=== PATIENT | female | born 1990 | race Caucasian/White ===

== ENCOUNTER 2017-12-09 05:13 | Inpatient (IN) | payer BC ==
[2017-12-09] MEDS ORDERED: Sodium Chloride 0.9% 2.5 ML Syringe FLUSH PRN (05:17)
[2017-12-09] MEDS ORDERED: Sodium Chloride 0.9% 10 ML Syringe FLUSH PRN (05:17)
[2017-12-09] MEDS ORDERED: Oxytocin/0.9 % Sodium Chloride 30 UNIT/500 ML BAG IV SCH (05:30)
[2017-12-09] MEDS ORDERED: Citric Acid/Sodium Citrate Solution 30 ML Cup PO SCH (05:30)
[2017-12-09] MEDS ORDERED: ceFAZolin 2 GM in Premix Bag 1 BAG IV ONE (05:30)
[2017-12-09] MEDS: Lactated Ringers 1,000 ML IV SCH ×2 (05:45→07:23)
[2017-12-09] MEDS ORDERED: Morphine PF 1 MG/ML Amp ONE (06:46)
[2017-12-09] MEDS ORDERED: ceFAZolin/Dextrose,Iso-Osmotic 2 GM/50 ML Duplex Bag IV ONE (06:49)
--- NOTE | 2017-12-09 07:05 | PCM.PREANE ---
Preanesthetic Assessment - Anesthesia/Transfusion/Family Hx Anesthesia History: Prior Anesthesia Without Reaction Family History of Anesthesia Reaction: No Transfusion History: Prior Transfusion Without Reaction Intubation History: Unknown - Review of Systems General: No Symptoms Pulmonary: No Symptoms Cardiovascular: No Symptoms Gastrointestinal: No Symptoms Neurological: No Symptoms Other: Reports: None - Physical Assessment Height: 1.63 m Weight: 88.904 kg ASA Class: 2 Mental Status: Alert & Oriented x3 Airway Class: Mallampati = 2 Dentition: Reports: Normal Dentition Thyro-Mental Finger Breadths: 3 Mouth Opening Finger Breadths: 3 ROM/Head Extension: Full Lungs: Clear to Auscultation, Normal Respiratory Effort Cardiovascular: Regular Rate, Regular Rhythm - Lab Values: Laboratory Last Values WBC 8.34 K/uL (4.0-11.0) 12/08/17 08:53 RBC 4.01 M/uL (4.30-5.90) L 12/08/17 08:53 Hgb 12.4 g/dL (12.0-16.0) 12/08/17 08:53 Hct 37.1 % (36.0-46.0) 12/08/17 08:53 MCV 92.5 fL (80.0-98.0) 02 08:53 MCH 30.9 pg (27.0-32.0) 12/08/17 08:53 MCHC 33.4 g/dL (31.0-37.0) 12/08/17 08:53 RDW Std Deviation 48.2 fl (28.0-62.0) 12/08/17 08:53 RDW Coeff of Vida 14 % (11.0-15.0) 12/08/17 08:53 Plt Count 147 K/uL (150-400) L 12/08/17 08:53 MPV 11.40 fL (7.40-12.00) 12/08/17 08:53 Nucleated RBC % 0.0 /100WBC 12/08/17 08:53 Nucleated RBCs # 0 K/uL 12/08/17 08:53 Blood Type O POSITIVE 12/08/17 08:53 Antibody Screen NEGATIVE 12/08/17 08:53 - Allergies Allergies/Adverse Reactions: Allergies Allergy/AdvReac Type Severity Reaction Status Date / Time No Known Allergies Allergy Verified 12/04/17 11:42 - Blood Blood Available: No - Anesthesia Plan Pre-Op Medication Ordered: None - Acknowledgements Anesthesia Type Planned: Spinal (general anesthesia back-up plan) Pt an Appropriate Candidate for the Planned Anesthesia: Yes Alternatives and Risks of Anesthesia Discussed w Pt/Guardian: Yes Pt/Guardian Understands and Agrees with Anesthesia Plan: Yes PreAnesthesia Questionnaire Gastrointestinal History: Reports: GERD Genitourinary History: Reports: None SYSTEM ADMINISTRATOR History: Reports: Psychiatric History: Reports: Anxiety Endocrine/Metabolic History: Reports: Obesity/BMI 30+ Hematologic History: Reports: Blood Transfusion(s) Other Hematologic History: transfusion after last c/section - Past Surgical History Head Surgeries/Procedures: Reports: None Female Surgical History: Reports: Section - SUBSTANCE USE Smoking Status *Q: Never Smoker Recreational Drug Use History: No - HOME MEDS Home Medications: Home Meds Cyanocobalamin (Vitamin B-12) [Cyanocobalamin Injection] 1 injection IM WEEKLY 12/04/17 [History] Escitalopram Oxalate 10 mg PO DAILY 12/04/17 [History] Ferrous Sulfate 325 mg PO DAILY 12/04/17 [History] Omeprazole Magnesium [Prilosec Otc] 20 mg PO DAILY 12/04/17 [History] PNV95/Ferrous Fumarate/FA [ Vitamins Tablet] 1 tab PO DAILY 12/04/17 [ History] - CURRENT (IN HOUSE) MEDS Current Meds: Current Medications Citric Acid/Sodium Citrate (Bicitra Solution) 30 ml PO .ONCE GHANSHYAM Lactated Ringer's (Ringers, Lactated) 1,000 mls @ 500 mls/hr IV .BOLUS GHANSHYAM Last Admin: 12/09/17 05:45 Dose: 500 mls/hr Oxytocin/Sodium Chloride (Oxytocin 30 Unit/500 Ml-Ns) 30 unit in 500 mls @ 250 mls/hr IV TITRATE GHANSHYAM Sodium Chloride (Saline Flush) 10 ml FLUSH ASDIRECTED PRN PRN Reason: Keep Vein Open Sodium Chloride (Saline Flush) 2.5 ml FLUSH ASDIRECTED PRN PRN Reason: Keep Vein Open Discontinued Medications Cefazolin Sodium/Dextrose 2 gm (/ Premix) 50 mls @ 100 mls/hr IV ONETIME ONE Stop: 12/09/17 05:59 Morphine Sulfate (Duramorph Pf) Confirm Administered Dose 1 mg .ROUTE .STK-MED ONE Stop: 12/09/17 06:47
[2017-12-09] MEDS ORDERED: Octyl 2-Cyanoacrylate 1 Tube ONE (07:33)
[2017-12-09] MEDS ORDERED: Phenylephrine/Normal Saline 100 MCG/ML 10 ML Syringe ONE (08:02)
[2017-12-09] MEDS ORDERED: Acetaminophen/oxyCODONE 325-5 MG Tab PO PRN ×3 (08:36→08:58)
[2017-12-09] MEDS ORDERED: Dexamethasone 4 MG/ML 5 ML MDV ONE (08:36)
[2017-12-09] MEDS ORDERED: Naloxone 0.4 MG/ML Syringe IVPUSH PRN (08:37)
[2017-12-09] MEDS ORDERED: Nalbuphine 10 MG/1 ML Vial IVPUSH PRN (08:37)
[2017-12-09] MEDS ORDERED: Midazolam 1 MG/ML 2 ML SDV ONE (08:41)
[2017-12-09] MEDS ORDERED: Oxytocin 10 Units/1 ML SDV ONE (08:49)
--- NOTE | 2017-12-09 08:57 | PCM.OPNOTE ---
- General Post-Op/Procedure Note Date of Surgery/Procedure: 12/09/17 Operative Procedure(s): repeat low transverse Findings: liveborn male 8/9 weight 4010 grams, normal adnexa, dense adhesions of uterus to anterior abdominal wall, ligated Pre Op Diagnosis: 39 weeks prior , desires repeat Post-Op Diagnosis: Same and dense pelvic adhesions Anesthesia Technique: Spinal Primary Surgeon: Suzie Shields Anesthesia Provider: Savanna Reynolds Fiction Writer: Alecia Beltran Pathology: none Fluid Replacement, Intraop: 2,000 Output, Urine Amount: 400 EBL in mLs: 700 Complications: None Known Condition: Good
[2017-12-09] MEDS ORDERED: Bisacodyl 10 MG Supp RECTAL PRN (08:58)
[2017-12-09] MEDS ORDERED: diphenhydrAMINE 50 MG/ML SDV IVPUSH PRN (08:58)
[2017-12-09] MEDS ORDERED: Ibuprofen 800 MG Tab PO PRN (08:58)
[2017-12-09] MEDS ORDERED: Ondansetron 4 MG/2 ML SDV IV PRN (08:58)
[2017-12-09] MEDS ORDERED: Methylergonovine 0.2 MG/1 ML Amp IM PRN (08:58)
[2017-12-09] MEDS ORDERED: Lanolin 100% Cream 7 GM Tube TOP PRN (08:58)
[2017-12-09] MEDS ORDERED: Lactated Ringers 1,000 ML IV SCH (09:00)
[2017-12-09] MEDS: Ketorolac 30 MG/ML SDV IVPUSH SCH ×3 (09:27→21:08)
--- NOTE | 2017-12-09 09:36 | PCM.POSTAN ---
POST ANESTHESIA ASSESSMENT - MENTAL STATUS Mental Status: Alert, Oriented - RESPIRATORY Respiratory Status: Respiratory Rate WNL, Airway Patent, O2 Saturation Stable - CARDIOVASCULAR CV Status: Pulse Rate WNL, Blood Pressure Stable - GASTROINTESTINAL GI Status: No Symptoms - POST OP HYDRATION Hydration Status: Adequate & Stable
[2017-12-09] MEDS: Docusate Sodium 100 MG Cap PO SCH ×2 (10:35→21:07)
--- NOTE | 2017-12-09 14:13 | OR ---
SURGEON: Suzie Shields M.D. DATE OF PROCEDURE: 12/09/2017 PREOPERATIVE DIAGNOSES: 1. 39 week intrauterine . 2. Previous delivery, desires repeat. POSTOPERATIVE DIAGNOSES: 1. 39 week intrauterine . 2. Previous delivery, desires repeat. PROCEDURE: Repeat low-transverse section with lysis of adhesions. ANESTHESIA: Spinal. ESTIMATED BLOOD LOSS: 700 mL. FLUIDS: 1500 mL of crystalloid. URINE OUTPUT: 400 mL. FINDINGS: Live-born male, scores 8 and 9. Weighing 4010 g. Normal-appearing tubes and ovaries. There were dense, up to 3 cm wide adhesions between the left side of the uterus and the anterior abdominal wall, which were cut, clamped, and ligated. COMPLICATIONS: None known. DISPOSITION: Stable to recovery. BRIEF HISTORY: This is a 27-year-old female, G2, P1-0-0-1. She presents at 39 weeks' gestation for repeat low-transverse delivery with risks discussed including bleeding, infection, injury to bowel, bladder, blood vessels, ureters, other organs, risk of thromboembolic event, and risk of anesthesia. Understanding all these risks, she does desire to proceed. DESCRIPTION OF PROCEDURE: With the patient in left tilt position, under adequate spinal analgesia, the patient was prepped with chlorhexidine and draped in usual fashion for abdominal surgery. SCDs were in place. Londono catheter has been in place and Ancef 2 g had been given IV. After documentation of adequate analgesia, the prior cicatrix was excised. Then a transverse curvilinear incision was carried through the subcutaneous tissue to the fascia, which was scored transversely in the midline. The fascial incision was extended laterally using curved Mendez scissors and the fascia was elevated from the underlying rectus muscles using sharp and blunt dissection. The rectus muscles were in the midline using hemostats and a finger was used to enter the peritoneal cavity high up towards the umbilicus. There were noted to be adhesions between the bladder and the lower uterine segment and these were lysed to allow for placement of the Tre O retractor. Further lysis of adhesions was performed over the lower uterine segment and the bladder was pushed well below the field of dissection. A transverse curvilinear incision was made with a scalpel over the lower uterine segment and a finger was used to enter the amniotic cavity. Clear fluid was noted. The incision was extended using blunt dissection. The head was delivered via the uterine incision without difficulty with subsequent delivery of the infant's shoulders and body. There was a double nuchal cord that was reduced. The infant was bulb suctioned by nose and mouth. The cord was clamped x2 and cut and the infant was handed to the nurse in attendance at delivery. The was a liveborn male, score 8 and 9, weighing 4010 g. Cord blood was collected for cord ABGs as well as routine cord blood sampling. The placenta was removed by manual extraction. The uterus was cleaned with a dry laparotomy tapes. The cervix was opened with a ring forceps. The uterine incision was closed with a running lock suture of 0 Polysorb followed by an imbricating layer of 0 Polysorb followed by 2 [id number] sutures in the midline for complete hemostasis. The uterus was not able to be moved and the left adnexa was unable to be evaluated. The right adnexa appeared normal. There were 2 areas of at least 3 cm thick adhesions between the anterior uterus and the anterior abdominal wall. These were doubly clamped, cut, and ligated using a Franki ligature of 2-0 Polysorb. With this, the uterus was mobile, the left adnexa could be inspected and appeared normal. The paracolic gutters and posterior cul-de-sac were cleaned with a wet laparotomy tape. The uterine incision was again inspected, it was completely hemostatic. The Tre O C- section retractor was removed and the rectus muscle and peritoneum were loosely approximated in the midline using a running mattress suture of 0 Polysorb. The posterior aspect of the fascia was inspected and areas of bleeding that were noted were cauterized. The fascial incision was closed with a running suture of 0 Polysorb. Subcutaneous tissue was irrigated. Any areas of bleeding that were noted were cauterized. The skin was closed with a running subcuticular suture of 2-0 Polysorb followed by skin glue. Final sponge, needle, and instrument counts were reported as correct. There were no known complications. in nursery in good condition. Mother remains in recovery in good condition. ANDREA / EL /[id number]
[2017-12-10] MEDS: Ketorolac 30 MG/ML SDV IVPUSH SCH ×2 (03:29→10:55)
--- NOTE | 2017-12-10 08:34 | PCM.PNPP ---
- General Info Functional Status: Reports: Pain Controlled, Tolerating Diet, Ambulating, Urinating - Review of Systems General: Reports: No Symptoms HEENT: Reports: No Symptoms Pulmonary: Reports: No Symptoms Cardiovascular: Reports: No Symptoms Gastrointestinal: Reports: No Symptoms Genitourinary: Reports: No Symptoms Musculoskeletal: Reports: No Symptoms Skin: Reports: No Symptoms Neurological: Reports: No Symptoms Psychiatric: Reports: No Symptoms - Patient Data Vital Signs - Most Recent: Last Vital Signs Temp 37.1 C 12/10/17 08:00 Pulse 88 12/10/17 08:00 Resp 18 12/10/17 08:00 BP 98/57 L 12/10/17 08:00 Pulse Ox 97 12/10/17 08:00 Weight - Most Recent: 88.904 kg I&O - Last 24 Hours: Intake & Output 12/09/17 12/10/17 12/10/17 22:59 06:59 14:59 Intake Total 4580 Output Total 800 Balance 3780 Lab Results - Last 24 Hours: Laboratory Results - last 24 hr 12/10/17 Range/Units 05:15 Hgb 7.7 L (12.0-16.0) g/dL Hct 22.9 L (36.0-46.0) % Med Orders - Current: Current Medications Bisacodyl (Dulcolax) 10 mg RECTAL .ONCE PRN PRN Reason: Constipation Diphenhydramine HCl (Benadryl) 25 mg IVPUSH Q6H PRN PRN Reason: Itching or Nausea Docusate Sodium (Colace) 100 mg PO BID [facility] Last Admin: 12/09/17 21:07 Dose: 100 mg Emollient Ointment (Lansinoh Hpa) 0 gm TOP ASDIRECTED PRN PRN Reason: Sore Nipples Last Admin: 12/09/17 15:06 Dose: 7 gm Lactated Ringer's (Ringers, Lactated) 1,000 mls @ 125 mls/hr IV ASDIRECTED [facility] Last Admin: 12/09/17 10:27 Dose: 125 mls/hr Ibuprofen (Motrin) 800 mg PO Q8H PRN PRN Reason: mild pain or fever Ketorolac Tromethamine (Toradol) 30 mg IVPUSH Q6H [facility] Stop: 12/10/17 09:01 Last Admin: 12/10/17 03:29 Dose: 30 mg Measles/Mumps/Rubella Vaccine Live (M-M-R Ii Vaccine) 0.5 ml SUBCUT .ONCE ONE Stop: 12/11/17 08:59 Methylergonovine Maleate (Methergine) 0.2 mg IM .ONCE PRN PRN Reason: Excessive Vaginal Bleeding Nalbuphine HCl (Nubain) 2.5 mg IVPUSH Q3H PRN PRN Reason: Pruritis Stop: 12/10/17 08:37 Naloxone HCl (Narcan) 0.1 mg IVPUSH ONETIME PRN PRN Reason: IF RR <6 WITH STIMULATION Stop: 12/10/17 08:37 Ondansetron HCl (Zofran) 4 mg IV Q4H PRN PRN Reason: Nausea/Vomiting Oxycodone/Acetaminophen (Percocet 325-5 Mg) 1 tab PO .Q4HR PRN PRN Reason: Breakthrough Pain Stop: 12/10/17 08:30 Oxycodone/Acetaminophen (Percocet 325-5 Mg) 1 tab PO Q4H PRN PRN Reason: Pain (moderate 4-6) Oxycodone/Acetaminophen (Percocet 325-5 Mg) 2 tab PO Q4H PRN PRN Reason: Pain (moderate 4-6) Discontinued Medications Citric Acid/Sodium Citrate (Bicitra Solution) 30 ml PO .ONCE GHANSHYAM Dexamethasone (Dexamethasone) Confirm Administered Dose 20 mg .ROUTE .STK-MED ONE Stop: 12/09/17 08:37 Cefazolin Sodium/Dextrose 2 gm (/ Premix) 50 mls @ 100 mls/hr IV ONETIME ONE Stop: 12/09/17 05:59 Lactated Ringer's (Ringers, Lactated) 1,000 mls @ 500 mls/hr IV .BOLUS GHANSHYAM Last Admin: 12/09/17 07:23 Dose: 999 mls/hr Oxytocin/Sodium Chloride (Oxytocin 30 Unit/500 Ml-Ns) 30 unit in 500 mls @ 250 mls/hr IV TITRATE GHANSHYAM Ibuprofen (Motrin) 800 mg PO Q8H PRN PRN Reason: mild pain or fever Midazolam HCl (Versed 1 Mg/Ml) Confirm Administered Dose 2 mg .ROUTE .STK-MED ONE Stop: 12/09/17 08:42 Morphine Sulfate (Duramorph Pf) Confirm Administered Dose 1 mg .ROUTE .STK-MED ONE Stop: 12/09/17 06:47 Octyl Cyanoacrylate (Dermabond Advance) Confirm Administered Dose 1 applic .ROUTE .STK-MED ONE Stop: 12/09/17 07:34 Oxytocin (Pitocin) Confirm Administered Dose 30 unit .ROUTE .STK-MED ONE Stop: 12/09/17 08:50 Phenylephrine HCl (Phenylephrine In Ns 100 Mcg/Ml) Confirm Administered Dose 1 mg .ROUTE .STK-MED ONE Stop: 12/09/17 08:03 Sodium Chloride (Saline Flush) 10 ml FLUSH ASDIRECTED PRN PRN Reason: Keep Vein Open Sodium Chloride (Saline Flush) 2.5 ml FLUSH ASDIRECTED PRN PRN Reason: Keep Vein Open - Infant Interaction Disposition, : [place] at Bedside Infant Interaction: Holding Infant Feeding: Breastfed Infant; Nursed Well Support Person: - Recovery Exam Fundal Tone: Firm Fundal Level: 1 Fingerbreadths Below Umbilicus Fundal Placement: Midline Lochia Amount: Small Lochia Color: Rubra/Red Perineum Description: Intact, Minimal Bruising/Swelling Episiotomy/Laceration: None Bladder Status: Voiding Urinary Elimination: Voided - Exam General: Alert, Oriented HEENT: Pupils Equal Neck: Supple Lungs: Clear to Auscultation, Normal Respiratory Effort Cardiovascular: Regular Rate, Regular Rhythm GI/Abdominal Exam: Normal Bowel Sounds, Soft, Non-Tender, No Organomegaly, No Distention, No Abnormal Bruit, No Mass, Pelvis Stable Extremities: Normal Inspection, Non-Tender, No Pedal Edema Skin: Warm, Dry, Intact Wound/Incisions: Healing Well Neurological: No New Focal Deficit Psy/Mental Status: Alert, Normal Affect, Normal Mood - Problem List & Annotations (1) delivery delivered SNOMED Code(s): 271421886 Code(s): O82 - ENCOUNTER FOR DELIVERY WITHOUT INDICATION Status: Acute Current Visit: Yes - Problem List Review Problem List Initiated/Reviewed/Updated: Yes - My Orders Last 24 Hours: My Active Orders 12/09/17 08:58 Patient Status [ADT] Routine Ambulate [RC] PER UNIT ROUTINE Communication Order [RC] PER UNIT ROUTINE Communication Order [RC] PER UNIT ROUTINE Communication Order [RC] Per Unit Routine May Shower [RC] ASDIRECTED Notify Provider Intake and Out [RC] ASDIRECTED Notify Provider Vital Signs [RC] ASDIRECTED RT Incentive Spirometry [RC] Q2HWA Acetaminophen/oxyCODONE [Percocet 325-5 MG] 1 tab PO Q4H PRN Acetaminophen/oxyCODONE [Percocet 325-5 MG] 2 tab PO Q4H PRN Bisacodyl [Dulcolax] 10 mg RECTAL .ONCE PRN Lanolin [Lansinoh HPA] See Dose Instructions TOP ASDIRECTED PRN Methylergonovine [Methergine] 0.2 mg IM .ONCE PRN Ondansetron [Zofran] 4 mg IV Q4H PRN diphenhydrAMINE [Benadryl] 25 mg IVPUSH Q6H PRN Abdominal Binder [OM.PC] Routine Assess Lochia [WOMSER] Per Unit Routine Assess Uterine Involution [WOMSER] Per Unit Routine Breast Pump [WOMSER] Per Unit Routine Peripheral IV Discontinue [OM.PC] Routine Sequential Compression Device [OM.PC] Per Unit Routine Resuscitation Status Routine 12/09/17 08:59 Antiembolic Devices [RC] PER UNIT ROUTINE 12/09/17 09:00 Docusate Sodium [Colace] 100 mg PO BID Ketorolac [Toradol] 30 mg IVPUSH Q6H Lactated Ringers [Ringers, Lactated] 1,000 ml IV ASDIRECTED 12/09/17 Dinner Regular Diet [DIET] 12/10/17 15:00 Ibuprofen [Motrin] 800 mg PO Q8H PRN 12/11/17 08:58 Measles, Mumps & Rubella [M-M-R II Vaccine] 0.5 ml SUBCUT .ONCE ONE - Assessment Assessment:: POD#1 after repeat low transverse , ambulating without dizziness, tolerating diet, voiding without difficulty - Plan Plan:: Continue postop care, encourage ambulation, anticipate discharge tomorrow.
[2017-12-10] MEDS: Docusate Sodium 100 MG Cap PO SCH ×2 (10:55→20:38)
--- NOTE | 2017-12-10 10:55 | PCM48HPAN ---
Post Anesthesia Note - EVALUATION WITHIN 48HRS OF ANESTHETIC Vital Signs in Normal Range: Yes Patient Participated in Evaluation: Yes Respiratory Function Stable: Yes Airway Patent: Yes Cardiovascular Function Stable: Yes Hydration Status Stable: Yes Pain Control Satisfactory: Yes Nausea and Vomiting Control Satisfactory: Yes Mental Status Recovered: Yes - COMMENTS/OBSERVATIONS Free Text/Narrative:: full sensation in legs bilaterally
[2017-12-10] MEDS: Ibuprofen 800 MG Tab PO PRN (17:00)
[2017-12-11] MEDS: Ibuprofen 800 MG Tab PO PRN ×3 (01:00→17:32)
--- NOTE | 2017-12-11 08:22 | PCM.PNPP ---
<Mara Pollock - Last Filed: 12/11/17 08:18> - General Info Date of Service: 12/11/17 Functional Status: Reports: Pain Controlled, Tolerating Diet, Ambulating, Urinating - Review of Systems General: Denies: Fever, Weakness, Fatigue Pulmonary: Denies: Shortness of Breath, Pleuritic Chest Pain, Cough Cardiovascular: Denies: Chest Pain, Palpitations, Dyspnea on Exertion Gastrointestinal: Denies: Abdominal Pain Genitourinary: Denies: Dysuria - General Info Date of Service: 12/11/17 - Patient Data Vital Signs - Most Recent: Last Vital Signs Temp 36.9 C 12/11/17 04:54 Pulse 98 12/11/17 04:54 Resp 18 12/11/17 04:54 BP 111/77 12/11/17 04:54 Pulse Ox 96 12/11/17 04:54 Weight - Most Recent: 88.904 kg Med Orders - Current: Current Medications Bisacodyl (Dulcolax) 10 mg RECTAL .ONCE PRN PRN Reason: Constipation Diphenhydramine HCl (Benadryl) 25 mg IVPUSH Q6H PRN PRN Reason: Itching or Nausea Docusate Sodium (Colace) 100 mg PO BID [facility] Last Admin: 12/10/17 20:38 Dose: 100 mg Emollient Ointment (Lansinoh Hpa) 0 gm TOP ASDIRECTED PRN PRN Reason: Sore Nipples Last Admin: 12/09/17 15:06 Dose: 7 gm Lactated Ringer's (Ringers, Lactated) 1,000 mls @ 125 mls/hr IV ASDIRECTED [facility] Last Admin: 12/09/17 10:27 Dose: 125 mls/hr Ibuprofen (Motrin) 800 mg PO Q8H PRN PRN Reason: mild pain or fever Last Admin: 12/11/17 01:00 Dose: 800 mg Measles/Mumps/Rubella Vaccine Live (M-M-R Ii Vaccine) 0.5 ml SUBCUT .ONCE ONE Stop: 12/11/17 08:59 Methylergonovine Maleate (Methergine) 0.2 mg IM .ONCE PRN PRN Reason: Excessive Vaginal Bleeding Ondansetron HCl (Zofran) 4 mg IV Q4H PRN PRN Reason: Nausea/Vomiting Oxycodone/Acetaminophen (Percocet 325-5 Mg) 1 tab PO Q4H PRN PRN Reason: Pain (moderate 4-6) Oxycodone/Acetaminophen (Percocet 325-5 Mg) 2 tab PO Q4H PRN PRN Reason: Pain (moderate 4-6) Discontinued Medications Citric Acid/Sodium Citrate (Bicitra Solution) 30 ml PO .ONCE [facility] Dexamethasone (Dexamethasone) Confirm Administered Dose 20 mg .ROUTE .STK-MED ONE Stop: 12/09/17 08:37 Cefazolin Sodium/Dextrose 2 gm (/ Premix) 50 mls @ 100 mls/hr IV ONETIME ONE Stop: 12/09/17 05:59 Lactated Ringer's (Ringers, Lactated) 1,000 mls @ 500 mls/hr IV .BOLUS [facility] Last Admin: 12/09/17 07:23 Dose: 999 mls/hr Oxytocin/Sodium Chloride (Oxytocin 30 Unit/500 Ml-Ns) 30 unit in 500 mls @ 250 mls/hr IV TITRATE [facility] Ibuprofen (Motrin) 800 mg PO Q8H PRN PRN Reason: mild pain or fever Ketorolac Tromethamine (Toradol) 30 mg IVPUSH Q6H [facility] Stop: 12/10/17 09:01 Last Admin: 12/10/17 10:55 Dose: 30 mg Midazolam HCl (Versed 1 Mg/Ml) Confirm Administered Dose 2 mg .ROUTE .STK-MED ONE Stop: 12/09/17 08:42 Morphine Sulfate (Duramorph Pf) Confirm Administered Dose 1 mg .ROUTE .STK-MED ONE Stop: 12/09/17 06:47 Nalbuphine HCl (Nubain) 2.5 mg IVPUSH Q3H PRN PRN Reason: Pruritis Stop: 12/10/17 08:37 Naloxone HCl (Narcan) 0.1 mg IVPUSH ONETIME PRN PRN Reason: IF RR <6 WITH STIMULATION Stop: 12/10/17 08:37 Octyl Cyanoacrylate (Dermabond Advance) Confirm Administered Dose 1 applic .ROUTE .STK-MED ONE Stop: 12/09/17 07:34 Oxycodone/Acetaminophen (Percocet 325-5 Mg) 1 tab PO .Q4HR PRN PRN Reason: Breakthrough Pain Stop: 12/10/17 08:30 Oxytocin (Pitocin) Confirm Administered Dose 30 unit .ROUTE .STK-MED ONE Stop: 12/09/17 08:50 Phenylephrine HCl (Phenylephrine In Ns 100 Mcg/Ml) Confirm Administered Dose 1 mg .ROUTE .STK-MED ONE Stop: 12/09/17 08:03 Sodium Chloride (Saline Flush) 10 ml FLUSH ASDIRECTED PRN PRN Reason: Keep Vein Open Sodium Chloride (Saline Flush) 2.5 ml FLUSH ASDIRECTED PRN PRN Reason: Keep Vein Open - Interaction Infant Disposition, : [place] at Bedside Infant Interaction: Holding Infant Feeding: Breastfed Infant; Nursed Well Support Person: - Recovery Exam Fundal Tone: Firm Fundal Level: 1 Fingerbreadths Below Umbilicus Fundal Placement: Midline Lochia Amount: Scant Lochia Color: Rubra/Red Perineum Description: Intact, Minimal Bruising/Swelling Episiotomy/Laceration: None Bladder Status: Voiding Urinary Elimination: Voided - Exam General: Alert, Oriented Lungs: Clear to Auscultation, Normal Respiratory Effort Cardiovascular: Regular Rate, Regular Rhythm GI/Abdominal Exam: Normal Bowel Sounds, Non-Tender, No Distention Extremities: Normal Inspection, Pedal Edema (trace) - Problem List & Annotations (1) delivery delivered SNOMED Code(s): 139367176 Code(s): O82 - ENCOUNTER FOR DELIVERY WITHOUT INDICATION Status: Acute Current Visit: Yes - Problem List Review Problem List Initiated/Reviewed/Updated: Yes - Assessment Assessment:: POD#2 after repeat low transverse . Minimal pain and lochia. Breast feeding well. under bili lights at this time. - Plan Plan:: Discharge instructions reviewed. If infant stays due to hyperbilirubinemia, mother would like to stay as well. Patient will continue iron supplementation. [facility] 6 [facility]. <Suzie Shields - Last Filed: 12/11/17 18:08> - Patient Data Vital Signs - Most Recent: Last Vital Signs Temp 36.8 C 12/11/17 08:00 Pulse 87 12/11/17 08:00 Resp 18 12/11/17 08:00 BP 97/55 L 12/11/17 08:00 Pulse Ox 98 12/11/17 08:00 Med Orders - Current: Current Medications Bisacodyl (Dulcolax) 10 mg RECTAL .ONCE PRN PRN Reason: Constipation Diphenhydramine HCl (Benadryl) 25 mg IVPUSH Q6H PRN PRN Reason: Itching or Nausea Docusate Sodium (Colace) 100 mg PO BID [facility] Last Admin: 12/11/17 09:02 Dose: 100 mg Emollient Ointment (Lansinoh Hpa) 0 gm TOP ASDIRECTED PRN PRN Reason: Sore Nipples Last Admin: 12/09/17 15:06 Dose: 7 gm Lactated Ringer's (Ringers, Lactated) 1,000 mls @ 125 mls/hr IV ASDIRECTED [facility] Last Admin: 12/09/17 10:27 Dose: 125 mls/hr Ibuprofen (Motrin) 800 mg PO Q8H PRN PRN Reason: mild pain or fever Last Admin: 12/11/17 17:32 Dose: 800 mg Methylergonovine Maleate (Methergine) 0.2 mg IM .ONCE PRN PRN Reason: Excessive Vaginal Bleeding Ondansetron HCl (Zofran) 4 mg IV Q4H PRN PRN Reason: Nausea/Vomiting Oxycodone/Acetaminophen (Percocet 325-5 Mg) 1 tab PO Q4H PRN PRN Reason: Pain (moderate 4-6) Oxycodone/Acetaminophen (Percocet 325-5 Mg) 2 tab PO Q4H PRN PRN Reason: Pain (moderate 4-6) Discontinued Medications Citric Acid/Sodium Citrate (Bicitra Solution) 30 ml PO .ONCE [facility] Dexamethasone (Dexamethasone) Confirm Administered Dose 20 mg .ROUTE .STK-MED ONE Stop: 12/09/17 08:37 Cefazolin Sodium/Dextrose 2 gm (/ Premix) 50 mls @ 100 mls/hr IV ONETIME ONE Stop: 12/09/17 05:59 Lactated Ringer's (Ringers, Lactated) 1,000 mls @ 500 mls/hr IV .BOLUS [facility] Last Admin: 12/09/17 07:23 Dose: 999 mls/hr Oxytocin/Sodium Chloride (Oxytocin 30 Unit/500 Ml-Ns) 30 unit in 500 mls @ 250 mls/hr IV TITRATE [facility] Ibuprofen (Motrin) 800 mg PO Q8H PRN PRN Reason: mild pain or fever Ketorolac Tromethamine (Toradol) 30 mg IVPUSH Q6H [facility] Stop: 12/10/17 09:01 Last Admin: 12/10/17 10:55 Dose: 30 mg Measles/Mumps/Rubella Vaccine Live (M-M-R Ii Vaccine) 0.5 ml SUBCUT .ONCE ONE Stop: 12/11/17 08:59 Midazolam HCl (Versed 1 Mg/Ml) Confirm Administered Dose 2 mg .ROUTE .STK-MED ONE Stop: 12/09/17 08:42 Morphine Sulfate (Duramorph Pf) Confirm Administered Dose 1 mg .ROUTE .STK-MED ONE Stop: 12/09/17 06:47 Nalbuphine HCl (Nubain) 2.5 mg IVPUSH Q3H PRN PRN Reason: Pruritis Stop: 12/10/17 08:37 Naloxone HCl (Narcan) 0.1 mg IVPUSH ONETIME PRN PRN Reason: IF RR <6 WITH STIMULATION Stop: 12/10/17 08:37 Octyl Cyanoacrylate (Dermabond Advance) Confirm Administered Dose 1 applic .ROUTE .STK-MED ONE Stop: 12/09/17 07:34 Oxycodone/Acetaminophen (Percocet 325-5 Mg) 1 tab PO .Q4HR PRN PRN Reason: Breakthrough Pain Stop: 12/10/17 08:30 Oxytocin (Pitocin) Confirm Administered Dose 30 unit .ROUTE .STK-MED ONE Stop: 12/09/17 08:50 Phenylephrine HCl (Phenylephrine In Ns 100 Mcg/Ml) Confirm Administered Dose 1 mg .ROUTE .STK-MED ONE Stop: 12/09/17 08:03 Sodium Chloride (Saline Flush) 10 ml FLUSH ASDIRECTED PRN PRN Reason: Keep Vein Open Sodium Chloride (Saline Flush) 2.5 ml FLUSH ASDIRECTED PRN PRN Reason: Keep Vein Open - Problem List & Annotations (1) delivery delivered SNOMED Code(s): 147438490 Code(s): O82 - ENCOUNTER FOR DELIVERY WITHOUT INDICATION Status: Acute Current Visit: Yes - Problem List Review Problem List Initiated/Reviewed/Updated: Yes - Plan Plan:: patient seen and examined and I agree with above.
[2017-12-11] MEDS ORDERED: Measles, Mumps & Rubella Vaccine 0.5 ML SDV SUBCUT ONE (08:58)
[2017-12-11] MEDS: Docusate Sodium 100 MG Cap PO SCH ×2 (09:02→22:55)
[2017-12-12] MEDS: Ibuprofen 800 MG Tab PO PRN (02:14)
--- NOTE | 2017-12-12 07:53 | PCM.PNPP ---
<Mara Pollock - Last Filed: 12/12/17 07:50> - General Info Date of Service: 12/12/17 Functional Status: Reports: Pain Controlled, Ambulating, Urinating - Review of Systems General: Denies: Fever, Weakness Pulmonary: Denies: Shortness of Breath, Pleuritic Chest Pain, Cough Cardiovascular: Denies: Chest Pain, Palpitations, Dyspnea on Exertion Gastrointestinal: Denies: Abdominal Pain Genitourinary: Denies: Dysuria - General Info Date of Service: 12/12/17 - Patient Data Vital Signs - Most Recent: Last Vital Signs Temp 36.7 C 12/12/17 04:14 Pulse 89 12/12/17 04:14 Resp 19 12/12/17 04:14 BP 105/57 L 12/12/17 04:14 Pulse Ox 98 12/12/17 04:14 Weight - Most Recent: 88.904 kg Med Orders - Current: Current Medications Bisacodyl (Dulcolax) 10 mg RECTAL .ONCE PRN PRN Reason: Constipation Diphenhydramine HCl (Benadryl) 25 mg IVPUSH Q6H PRN PRN Reason: Itching or Nausea Docusate Sodium (Colace) 100 mg PO BID [facility] Last Admin: 12/11/17 22:55 Dose: 100 mg Emollient Ointment (Lansinoh Hpa) 0 gm TOP ASDIRECTED PRN PRN Reason: Sore Nipples Last Admin: 12/09/17 15:06 Dose: 7 gm Lactated Ringer's (Ringers, Lactated) 1,000 mls @ 125 mls/hr IV ASDIRECTED [facility] Last Admin: 12/09/17 10:27 Dose: 125 mls/hr Ibuprofen (Motrin) 800 mg PO Q8H PRN PRN Reason: mild pain or fever Last Admin: 12/12/17 02:14 Dose: 800 mg Methylergonovine Maleate (Methergine) 0.2 mg IM .ONCE PRN PRN Reason: Excessive Vaginal Bleeding Ondansetron HCl (Zofran) 4 mg IV Q4H PRN PRN Reason: Nausea/Vomiting Oxycodone/Acetaminophen (Percocet 325-5 Mg) 1 tab PO Q4H PRN PRN Reason: Pain (moderate 4-6) Oxycodone/Acetaminophen (Percocet 325-5 Mg) 2 tab PO Q4H PRN PRN Reason: Pain (moderate 4-6) Discontinued Medications Citric Acid/Sodium Citrate (Bicitra Solution) 30 ml PO .ONCE [facility] Dexamethasone (Dexamethasone) Confirm Administered Dose 20 mg .ROUTE .STK-MED ONE Stop: 12/09/17 08:37 Cefazolin Sodium/Dextrose 2 gm (/ Premix) 50 mls @ 100 mls/hr IV ONETIME ONE Stop: 12/09/17 05:59 Lactated Ringer's (Ringers, Lactated) 1,000 mls @ 500 mls/hr IV .BOLUS [facility] Last Admin: 12/09/17 07:23 Dose: 999 mls/hr Oxytocin/Sodium Chloride (Oxytocin 30 Unit/500 Ml-Ns) 30 unit in 500 mls @ 250 mls/hr IV TITRATE [facility] Ibuprofen (Motrin) 800 mg PO Q8H PRN PRN Reason: mild pain or fever Ketorolac Tromethamine (Toradol) 30 mg IVPUSH Q6H [facility] Stop: 12/10/17 09:01 Last Admin: 12/10/17 10:55 Dose: 30 mg Measles/Mumps/Rubella Vaccine Live (M-M-R Ii Vaccine) 0.5 ml SUBCUT .ONCE ONE Stop: 12/11/17 08:59 Midazolam HCl (Versed 1 Mg/Ml) Confirm Administered Dose 2 mg .ROUTE .STK-MED ONE Stop: 12/09/17 08:42 Morphine Sulfate (Duramorph Pf) Confirm Administered Dose 1 mg .ROUTE .STK-MED ONE Stop: 12/09/17 06:47 Nalbuphine HCl (Nubain) 2.5 mg IVPUSH Q3H PRN PRN Reason: Pruritis Stop: 12/10/17 08:37 Naloxone HCl (Narcan) 0.1 mg IVPUSH ONETIME PRN PRN Reason: IF RR <6 WITH STIMULATION Stop: 12/10/17 08:37 Octyl Cyanoacrylate (Dermabond Advance) Confirm Administered Dose 1 applic .ROUTE .STK-MED ONE Stop: 12/09/17 07:34 Oxycodone/Acetaminophen (Percocet 325-5 Mg) 1 tab PO .Q4HR PRN PRN Reason: Breakthrough Pain Stop: 12/10/17 08:30 Oxytocin (Pitocin) Confirm Administered Dose 30 unit .ROUTE .STK-MED ONE Stop: 12/09/17 08:50 Phenylephrine HCl (Phenylephrine In Ns 100 Mcg/Ml) Confirm Administered Dose 1 mg .ROUTE .STK-MED ONE Stop: 12/09/17 08:03 Sodium Chloride (Saline Flush) 10 ml FLUSH ASDIRECTED PRN PRN Reason: Keep Vein Open Sodium Chloride (Saline Flush) 2.5 ml FLUSH ASDIRECTED PRN PRN Reason: Keep Vein Open - Interaction Infant Disposition, : at Bedside Infant Interaction: Holding Infant Infant Feeding: Breastfed Infant; Nursed Well Support Person: - Recovery Exam Fundal Tone: Firm Fundal Level: 1 Fingerbreadths Below Umbilicus Fundal Placement: Midline Lochia Amount: Scant Lochia Color: Rubra/Red Perineum Description: Intact, Minimal Bruising/Swelling Episiotomy/Laceration: None Bladder Status: Voiding Urinary Elimination: Voided - Exam Neck: Supple Lungs: Clear to Auscultation, Normal Respiratory Effort Cardiovascular: Regular Rate, Regular Rhythm GI/Abdominal Exam: Normal Bowel Sounds, No Distention Extremities: Normal Inspection - Problem List & Annotations (1) delivery delivered SNOMED Code(s): 730321473 Code(s): O82 - ENCOUNTER FOR DELIVERY WITHOUT INDICATION Status: Acute Current Visit: Yes - Problem List Review Problem List Initiated/Reviewed/Updated: Yes - My Orders Last 24 Hours: My Active Orders 12/11/17 08:23 Ready for Discharge [RC] PER UNIT ROUTINE - Assessment Assessment:: POD#3 after repeat low transverse . Minimal pain and lochia. Breast feeding well. Discharge home today. - Plan Plan:: Discharge instructions reviewed. Nothing in the vagina for 6 weeks. Continue PNV while breast feeding. Rx for Percocet to use as needed for pain. No lifting greater than 10 lbs. Instructed patient to call if she develops fever greater than 101 or bleeding through a large pad an hour. F/U with [facility] in 2 and 6 weeks. <Suzie Shields - Last Filed: 12/12/17 08:56> - Patient Data Vital Signs - Most Recent: Last Vital Signs Temp 36.7 C 12/12/17 04:14 Pulse 89 12/12/17 04:14 Resp 19 12/12/17 04:14 BP 105/57 L 12/12/17 04:14 Pulse Ox 98 12/12/17 04:14 Med Orders - Current: Current Medications Bisacodyl (Dulcolax) 10 mg RECTAL .ONCE PRN PRN Reason: Constipation Diphenhydramine HCl (Benadryl) 25 mg IVPUSH Q6H PRN PRN Reason: Itching or Nausea Docusate Sodium (Colace) 100 mg PO BID [facility] Last Admin: 12/11/17 22:55 Dose: 100 mg Emollient Ointment (Lansinoh Hpa) 0 gm TOP ASDIRECTED PRN PRN Reason: Sore Nipples Last Admin: 12/09/17 15:06 Dose: 7 gm Lactated Ringer's (Ringers, Lactated) 1,000 mls @ 125 mls/hr IV ASDIRECTED [facility] Last Admin: 12/09/17 10:27 Dose: 125 mls/hr Ibuprofen (Motrin) 800 mg PO Q8H PRN PRN Reason: mild pain or fever Last Admin: 12/12/17 02:14 Dose: 800 mg Methylergonovine Maleate (Methergine) 0.2 mg IM .ONCE PRN PRN Reason: Excessive Vaginal Bleeding Ondansetron HCl (Zofran) 4 mg IV Q4H PRN PRN Reason: Nausea/Vomiting Oxycodone/Acetaminophen (Percocet 325-5 Mg) 1 tab PO Q4H PRN PRN Reason: Pain (moderate 4-6) Oxycodone/Acetaminophen (Percocet 325-5 Mg) 2 tab PO Q4H PRN PRN Reason: Pain (moderate 4-6) Discontinued Medications Citric Acid/Sodium Citrate (Bicitra Solution) 30 ml PO .ONCE [facility] Dexamethasone (Dexamethasone) Confirm Administered Dose 20 mg .ROUTE .STK-MED ONE Stop: 12/09/17 08:37 Cefazolin Sodium/Dextrose 2 gm (/ Premix) 50 mls @ 100 mls/hr IV ONETIME ONE Stop: 12/09/17 05:59 Lactated Ringer's (Ringers, Lactated) 1,000 mls @ 500 mls/hr IV .BOLUS [facility] Last Admin: 12/09/17 07:23 Dose: 999 mls/hr Oxytocin/Sodium Chloride (Oxytocin 30 Unit/500 Ml-Ns) 30 unit in 500 mls @ 250 mls/hr IV TITRATE [facility] Ibuprofen (Motrin) 800 mg PO Q8H PRN PRN Reason: mild pain or fever Ketorolac Tromethamine (Toradol) 30 mg IVPUSH Q6H [facility] Stop: 12/10/17 09:01 Last Admin: 12/10/17 10:55 Dose: 30 mg Measles/Mumps/Rubella Vaccine Live (M-M-R Ii Vaccine) 0.5 ml SUBCUT .ONCE ONE Stop: 12/11/17 08:59 Midazolam HCl (Versed 1 Mg/Ml) Confirm Administered Dose 2 mg .ROUTE .STK-MED ONE Stop: 12/09/17 08:42 Morphine Sulfate (Duramorph Pf) Confirm Administered Dose 1 mg .ROUTE .STK-MED ONE Stop: 12/09/17 06:47 Nalbuphine HCl (Nubain) 2.5 mg IVPUSH Q3H PRN PRN Reason: Pruritis Stop: 12/10/17 08:37 Naloxone HCl (Narcan) 0.1 mg IVPUSH ONETIME PRN PRN Reason: IF RR <6 WITH STIMULATION Stop: 12/10/17 08:37 Octyl Cyanoacrylate (Dermabond Advance) Confirm Administered Dose 1 applic .ROUTE .STK-MED ONE Stop: 12/09/17 07:34 Oxycodone/Acetaminophen (Percocet 325-5 Mg) 1 tab PO .Q4HR PRN PRN Reason: Breakthrough Pain Stop: 12/10/17 08:30 Oxytocin (Pitocin) Confirm Administered Dose 30 unit .ROUTE .STK-MED ONE Stop: 12/09/17 08:50 Phenylephrine HCl (Phenylephrine In Ns 100 Mcg/Ml) Confirm Administered Dose 1 mg .ROUTE .STK-MED ONE Stop: 12/09/17 08:03 Sodium Chloride (Saline Flush) 10 ml FLUSH ASDIRECTED PRN PRN Reason: Keep Vein Open Sodium Chloride (Saline Flush) 2.5 ml FLUSH ASDIRECTED PRN PRN Reason: Keep Vein Open - Problem List & Annotations (1) delivery delivered SNOMED Code(s): 325248775 Code(s): O82 - ENCOUNTER FOR DELIVERY WITHOUT INDICATION Status: Acute Current Visit: Yes - Problem List Review Problem List Initiated/Reviewed/Updated: Yes - Plan Plan:: patient was seen and examined by me and I agree with above.
[2017-12-12] MEDS: Docusate Sodium 100 MG Cap PO SCH (11:02)
== END 2017-12-12 12:00 | disposition home or self-care (01) | DRG 540 ==
LOC: MW.OB 05:13
PROVIDERS: ADMIT Obstetrics & Gynecology; ATTEND Obstetrics & Gynecology
PROC: 10D00Z1 Extraction of Products of Conception, Low, Open Approach (ICD-10-PCS; principal; 2017-12-09)
DX: O34.211 Maternal care for low transverse scar from previous cesarean delivery (principal); Z3A.39 39 weeks gestation of pregnancy; Z37.0 Single live birth
CPT/HCPCS: 01961; 36415; 59025; 85014; 85018; 85027; 86850; 86900; 86901; 90707; A9270-GY; J0690; J1100; J1885; J2250; J2274; J2590; J7120

== ENCOUNTER 2019-09-17 08:00 | Inpatient (IN) | payer BC, OTHER ==
[2019-09-21] MEDS ORDERED: Sodium Chloride 0.9% 2.5 ML Syringe FLUSH PRN (05:28)
[2019-09-21] MEDS ORDERED: Sodium Chloride 0.9% 10 ML SDV IV PRN (05:28)
[2019-09-21] MEDS ORDERED: Sodium Chloride 0.9% 10 ML Syringe FLUSH PRN (05:28)
[2019-09-21] MEDS ORDERED: Citric Acid/Sodium Citrate Solution 30 ML Cup PO ONE (05:28)
[2019-09-21] MEDS ORDERED: ceFAZolin 2 GM in Premix Bag 1 BAG IV ONE (05:28)
[2019-09-21] MEDS ORDERED: Oxytocin/0.9 % Sodium Chloride 30 UNIT/500 ML BAG IV SCH (05:30)
[2019-09-21] MEDS: Lactated Ringers 1,000 ML IV SCH ×4 (05:49→07:51)
--- NOTE | 2019-09-21 06:36 | PCM.PREANE ---
Preanesthetic Assessment - Anesthesia/Transfusion/Family Hx Anesthesia History: Prior Anesthesia Without Reaction Family History of Anesthesia Reaction: No Transfusion History: Prior Transfusion Without Reaction Intubation History: Unknown - Review of Systems General: No Symptoms Pulmonary: No Symptoms Cardiovascular: No Symptoms Gastrointestinal: No Symptoms Neurological: No Symptoms Other: Reports: None - Physical Assessment Height: 5 ft 4 in Weight: 89.358 kg ASA Class: 2 Mental Status: Alert & Oriented x3 Airway Class: Mallampati = 2 Dentition: Reports: Normal Dentition Thyro-Mental Finger Breadths: 3 Mouth Opening Finger Breadths: 3 ROM/Head Extension: Full Lungs: Clear to Auscultation, Normal Respiratory Effort Cardiovascular: Regular Rate, Regular Rhythm - Lab Values: Laboratory Last Values WBC 11.10 K/uL (4.0-11.0) H 09/21/19 05:40 RBC 4.20 M/uL (4.30-5.90) L 09/21/19 05:40 Hgb 13.2 g/dL (12.0-16.0) 09/21/19 05:40 Hct 38.6 % (36.0-46.0) 09/21/19 05:40 MCV 91.9 fL (80.0-98.0) 09/21/19 05:40 MCH 31.4 pg (27.0-32.0) 09/21/19 05:40 MCHC 34.2 g/dL (31.0-37.0) 09/21/19 05:40 RDW Std Deviation 44.8 fl (28.0-62.0) 09/21/19 05:40 RDW Coeff of Vida 14 % (11.0-15.0) 09/21/19 05:40 Plt Count 238 K/uL (150-400) 09/21/19 05:40 MPV 10.30 fL (7.40-12.00) 09/21/19 05:40 Nucleated RBC % 0.0 /100WBC 09/21/19 05:40 Nucleated RBCs # 0 K/uL 09/21/19 05:40 - Allergies Allergies/Adverse Reactions: Allergies Allergy/AdvReac Type Severity Reaction Status Date / Time No Known Allergies Allergy Verified 09/15/19 14:15 - Blood Blood Available: No - Anesthesia Plan Pre-Op Medication Ordered: None - Acknowledgements Anesthesia Type Planned: Spinal (general anesthesia back-up plan) Pt an Appropriate Candidate for the Planned Anesthesia: Yes Alternatives and Risks of Anesthesia Discussed w Pt/Guardian: Yes Pt/Guardian Understands and Agrees with Anesthesia Plan: Yes PreAnesthesia Questionnaire HEENT History: Reports: None Gastrointestinal History: Reports: GERD Other Gastrointestinal History: takes Prilosec daily Genitourinary History: Reports: None [employer] History: Reports: Musculoskeletal History: Reports: Fracture Other Musculoskeletal History: hx of fx right hand and wrist Neurological History: Reports: Other (See Below) Other Neuro History: hx of motion sickness Psychiatric History: Reports: Anxiety, Depression Other Psychiatric History: does not take medications Endocrine/Metabolic History: Reports: Obesity/BMI 30+ Hematologic History: Reports: Anemia, Blood Transfusion(s) Other Hematologic History: transfusion after last c/section - Past Surgical History Head Surgeries/Procedures: Reports: None HEENT Surgical History: Reports: Oral Surgery Other HEENT Surgeries/Procedures: wisdom teeth Female Surgical History: Reports: Section Other Female Surgeries/Procedures: x2 - SUBSTANCE USE Smoking Status *Q: Never Smoker Second Hand Smoke Exposure: No Recreational Drug Use History: No - HOME MEDS Home Medications: Home Meds Omeprazole Magnesium [Prilosec Otc] 20 mg PO DAILY 12/04/17 [History] Pnv No.95/Ferrous Fum/Folic AC [ Vitamins Tablet] 1 tab PO DAILY [History] Iron 65 mg PO DAILY 09/15/19 [History] - CURRENT (IN HOUSE) MEDS Current Meds: Current Medications Lactated Ringer's (Ringers, Lactated) 1,000 mls @ 500 mls/hr IV BOLUS [facility] Last Admin: 09/21/19 05:49 Dose: 500 mls/hr Oxytocin/Sodium Chloride (Oxytocin 30 Unit/500 Ml-Ns) 30 unit in 500 mls @ 250 mls/hr IV TITRATE [facility] Sodium Chloride (Saline Flush) 10 ml FLUSH ASDIRECTED PRN PRN Reason: Keep Vein Open Sodium Chloride (Saline Flush) 2.5 ml FLUSH ASDIRECTED PRN PRN Reason: Keep Vein Open Sodium Chloride (Normal Saline) 10 ml IV ASDIRECTED PRN PRN Reason: IV Use Discontinued Medications Citric Acid/Sodium Citrate (Bicitra Solution) 30 ml PO ONETIME ONE Stop: 09/21/19 05:29 Cefazolin Sodium/Dextrose 2 gm (/ Premix) 50 mls @ 100 mls/hr IV ONETIME ONE Stop: 09/21/19 05:57
[2019-09-21] MEDS ORDERED: Morphine PF 10 MG/10 ML SDV ONE (07:25)
[2019-09-21] MEDS ORDERED: Ondansetron 4 MG/2 ML SDV ONE (07:31)
[2019-09-21] MEDS ORDERED: ceFAZolin 1 GM Vial ONE (07:35)
[2019-09-21] MEDS ORDERED: Water For Injection, Sterile 20 ML ONE (07:35)
[2019-09-21] MEDS ORDERED: Citric Acid/Sodium Citrate Solution 30 ML Cup ONE (07:49)
[2019-09-21] MEDS ORDERED: Octyl 2-Cyanoacrylate 1 Tube ONE ×2 (07:56→09:04)
[2019-09-21] MEDS ORDERED: Phenylephrine/Normal Saline 100 MCG/ML 10 ML Syringe ONE (08:18)
[2019-09-21] MEDS ORDERED: Oxytocin 10 Units/1 ML SDV ONE (08:28)
[2019-09-21] MEDS ORDERED: Midazolam 1 MG/ML 2 ML SDV ONE (08:31)
[2019-09-21] MEDS ORDERED: Lanolin 100% Cream 7 GM Tube TOP PRN (08:50)
[2019-09-21] MEDS ORDERED: Acetaminophen/oxyCODONE 325-5 MG Tab PO PRN (08:50)
[2019-09-21] MEDS ORDERED: diphenhydrAMINE 50 MG/ML SDV IVPUSH PRN ×2 (08:50→09:17)
[2019-09-21] MEDS ORDERED: Ondansetron 4 MG/2 ML SDV IVPUSH PRN (08:50)
[2019-09-21] MEDS ORDERED: Bisacodyl 10 MG Supp RECTAL PRN (08:50)
--- NOTE | 2019-09-21 08:50 | PCM.OPNOTE ---
- General Post-Op/Procedure Note Date of Surgery/Procedure: 09/21/19 Operative Procedure(s): repeat low transverse Findings: normal pelvis with filmy adhesions Pre Op Diagnosis: 39 weeks , prior , desires repeat. Post-Op Diagnosis: Same Anesthesia Technique: Spinal Primary Surgeon: Suzie Shields Anesthesia Provider: Corby Albarran Vp & General Counsel: Alize Mendez Pathology: none Fluid Replacement, Intraop: 1,300 EBL in mLs: 500 Complications: None Known Condition: Good
[2019-09-21] MEDS ORDERED: Lactated Ringers 1,000 ML IV SCH (09:00)
[2019-09-21] MEDS ORDERED: Nalbuphine 10 MG/1 ML Vial IVPUSH PRN (09:17)
[2019-09-21] MEDS ORDERED: Naloxone 0.4 MG/ML Syringe IVPUSH PRN (09:17)
[2019-09-21] MEDS: Ketorolac 30 MG/ML SDV IVPUSH SCH ×3 (09:28→21:00)
--- NOTE | 2019-09-21 10:01 | PCM48HPAN ---
Post Anesthesia Note - EVALUATION WITHIN 48HRS OF ANESTHETIC Vital Signs in Normal Range: Yes Patient Participated in Evaluation: Yes Respiratory Function Stable: Yes Airway Patent: Yes Cardiovascular Function Stable: Yes Hydration Status Stable: Yes Pain Control Satisfactory: Yes Nausea and Vomiting Control Satisfactory: Yes Mental Status Recovered: Yes Vital Signs: Last Vital Signs Temp 36.1 C 09/21/19 09:15 Pulse 74 09/21/19 09:45 Resp 13 09/21/19 09:45 BP 105/58 L 09/21/19 09:45 Pulse Ox 99 09/21/19 09:45
--- NOTE | 2019-09-21 10:04 | PCM.POSTAN ---
POST ANESTHESIA ASSESSMENT - MENTAL STATUS Mental Status: Alert, Oriented - VITAL SIGNS Vital Signs: Last Vital Signs Temp 36.1 C 09/21/19 09:15 Pulse 74 09/21/19 09:45 Resp 13 09/21/19 09:45 BP 105/58 L 09/21/19 09:45 Pulse Ox 99 09/21/19 09:45 - RESPIRATORY Respiratory Status: Respiratory Rate WNL, Airway Patent, O2 Saturation Stable - CARDIOVASCULAR CV Status: Pulse Rate WNL, Blood Pressure Stable - GASTROINTESTINAL GI Status: No Symptoms - PAIN Pain Score: 0 - POST OP HYDRATION Hydration Status: Adequate & Stable - OBSERVATIONS Free Text/Narrative:: no anesthesia problems
--- NOTE | 2019-09-21 10:45 | OR ---
SURGEON: Suzie Shields M.D. DATE OF PROCEDURE: 09/21/2019 PREOPERATIVE DIAGNOSIS: A 39-week intrauterine , prior delivery. POSTOPERATIVE DIAGNOSIS: A 39-week intrauterine , prior delivery. PROCEDURE: Repeat low-transverse section. PRIMARY SURGEON: Suzie Shields MD. RECORDING ARTIST: first Isaías assist student. ANESTHESIA: Corby Albarran with spinal analgesia. ESTIMATED BLOOD LOSS: 500 mL. FLUIDS: 1300 mL of crystalloid. FINDINGS: Liveborn female, scores 8 and 9, weighing 4080 g. Normal-appearing uterus, tubes, and ovaries with some filmy adhesions that were lysed. COMPLICATIONS: None known. DISPOSITION: Stable to recovery. BRIEF HISTORY: This is a 29-year-old female. She presents having had 2 prior deliveries, for a repeat section at 39 weeks' gestation. This has been uncomplicated. She does suffer from anxiety, but has been doing very well during the . Risks of surgery were discussed including bleeding; infection; injury to bowel, bladder, blood vessels, or other organs; risk of thromboembolic event; and risk of anesthesia. Understanding all these risks, she does desire to proceed. DESCRIPTION OF PROCEDURE: With the patient in left tilt position, under adequate spinal analgesia, the abdomen was prepped with chlorhexidine and draped in the usual fashion for abdominal surgery. SCDs were in place. Londono catheter had been placed and an appropriate time-out was held. She had received 2 g of Ancef IV, and after documentation of adequate analgesia, the prior cicatrix was excised. The incision was carried through the subcutaneous tissue to the fascia, which was scored transversely in the midline. The fascial incision was extended laterally using curved Andrea scissors. The fascia was elevated from the underlying rectus muscle using sharp and blunt dissection. The rectus muscles were in the midline using sharp dissection. A finger was placed into the peritoneal cavity. There were no significant adhesions anteriorly, therefore, the incision was extended using sharp and blunt dissection. There was some filmy adhesions over the lower uterine segment that were incised and the Tre O retractor was placed. The incision was made over the lower uterine segment with a scalpel and initially the anterior low-lying placenta was noted, however, the amniotic membranes were visible through the incision. They were ruptured. The head was delivered via the uterine incision with subsequent delivery of the 's shoulders and body. The infant was bulb suctioned by nose and mouth. After the cord had ceased to pulsate, it was doubly clamped and cut, and the infant was handed to the nurse in attendance at delivery. The was a liveborn female, score of 8 and 9, weighing 4080 g. Cord blood was collected for cord ABGs as well as routine cord blood sampling. The placenta was removed by manual extraction. The uterus was cleaned with a dry laparotomy tape. The cervix was opened with ring forceps. The uterine incision was closed with a running lock suture of 0 Polysorb followed by an imbricating layer of 0 Polysorb. At this point, the incision was then inspected and was completely hemostatic. The tubes and ovaries were inspected. There were some adhesions of the omentum to the anterior wall, which were lysed, and final inspection of the incision was performed. It was hemostatic, therefore, the Tre retractor was removed. The rectus muscle and peritoneum were loosely approximated in the midline using a running mattress suture of 0 Polysorb. The posterior aspect of the fascia was inspected and was hemostatic. The fascial incision was closed with a running suture of 0 Polysorb. Subcutaneous tissue was irrigated, any areas of bleeding that were noted were cauterized. The skin was closed with a running subcuticular suture of 3-0 Monocryl followed by Dermabond. Final sponge, needle, and instrument counts were reported as correct. There were no known complications. Mother and baby are in recovery in good condition. ANDREA GALLEGOS /[id number]
[2019-09-21] MEDS: Docusate Sodium 100 MG Cap PO SCH ×2 (10:58→20:53)
[2019-09-21] MEDS ORDERED: Ketorolac 30 MG/ML SDV ONE (11:08)
[2019-09-22] MEDS: Ketorolac 30 MG/ML SDV IVPUSH SCH ×2 (04:43→10:43)
--- NOTE | 2019-09-22 07:07 | PCM48HPAN ---
Post Anesthesia Note - EVALUATION WITHIN 48HRS OF ANESTHETIC Vital Signs in Normal Range: Yes Patient Participated in Evaluation: Yes Respiratory Function Stable: Yes Airway Patent: Yes Cardiovascular Function Stable: Yes Hydration Status Stable: Yes Pain Control Satisfactory: Yes Nausea and Vomiting Control Satisfactory: Yes Mental Status Recovered: Yes Vital Signs: Last Vital Signs Temp 36.7 C 09/22/19 05:00 Pulse 78 09/22/19 05:00 Resp 15 09/22/19 06:00 BP 114/62 09/22/19 05:00 Pulse Ox 95 09/22/19 06:00
--- NOTE | 2019-09-22 07:48 | PCM.PNPP ---
- General Info Date of Service: 09/22/19 Admission Dx/Problem (Free Text): post op Functional Status: Reports: Pain Controlled, Tolerating Diet, Ambulating, Urinating - Review of Systems General: Reports: No Symptoms HEENT: Reports: No Symptoms Pulmonary: Reports: No Symptoms Cardiovascular: Reports: No Symptoms Gastrointestinal: Reports: No Symptoms Genitourinary: Reports: No Symptoms Musculoskeletal: Reports: No Symptoms Skin: Reports: No Symptoms Neurological: Reports: No Symptoms Psychiatric: Reports: No Symptoms - General Info Date of Service: 09/22/19 - Patient Data Vital Signs - Most Recent: Last Vital Signs Temp 36.7 C 09/22/19 05:00 Pulse 78 09/22/19 05:00 Resp 15 09/22/19 06:00 BP 114/62 09/22/19 05:00 Pulse Ox 95 09/22/19 06:00 Weight - Most Recent: 89.358 kg I&O - Last 24 Hours: Intake & Output 09/21/19 09/22/19 09/22/19 22:59 06:59 14:59 Output Total 300 1450 Balance -300 -1450 Lab Results - Last 24 Hours: Laboratory Results - last 24 hr 09/21/19 09/22/19 Range/Units 08:28 05:55 Hgb 11.0 L (12.0-16.0) g/dL Hct 33.5 L (36.0-46.0) % Cord ABG pH 7.256 (7.18-7.38) Cord ABG Base Excess -3 (-10--2) Cord VBG pH 7.357 (7.25-7.45) Cord VBG Base Excess -4 (-10--2) Med Orders - Current: Current Medications Bisacodyl (Dulcolax) 10 mg RECTAL ONETIME PRN PRN Reason: Constipation Diphenhydramine HCl (Benadryl) 25 mg IVPUSH Q6H PRN PRN Reason: Itching or Nausea Diphenhydramine HCl (Benadryl) 25 mg IVPUSH Q4H PRN PRN Reason: Itching Stop: 09/22/19 09:17 Docusate Sodium (Colace) 100 mg PO BID [facility] Last Admin: 09/21/19 20:53 Dose: 100 mg Emollient Ointment (Lansinoh Hpa) 0 gm TOP ASDIRECTED PRN PRN Reason: Sore Nipples Lactated Ringer's (Ringers, Lactated) 1,000 mls @ 125 mls/hr IV ASDIRECTED [facility] Last Admin: 09/21/19 10:50 Dose: 125 mls/hr Ibuprofen (Motrin) 800 mg PO Q8H PRN PRN Reason: mild pain or fever Ketorolac Tromethamine (Toradol) 30 mg IVPUSH Q6H [facility] Stop: 09/22/19 09:01 Last Admin: 09/22/19 04:43 Dose: 30 mg Nalbuphine HCl (Nubain) 5 mg IVPUSH Q3H PRN PRN Reason: Pruritis Stop: 09/22/19 09:17 Last Admin: 09/21/19 10:49 Dose: 5 mg Naloxone HCl (Narcan) 0.1 mg IVPUSH ONETIME PRN PRN Reason: Respiratory Depression Stop: 09/22/19 09:17 Ondansetron HCl (Zofran) 4 mg IVPUSH Q4H PRN PRN Reason: Nausea/Vomiting Oxycodone/Acetaminophen (Percocet 325-5 Mg) 1 tab PO Q4H PRN PRN Reason: Pain (moderate 4-6) Oxycodone/Acetaminophen (Percocet 325-5 Mg) 2 tab PO Q4H PRN PRN Reason: Pain (moderate 4-6) Discontinued Medications Cefazolin Sodium (Ancef) Confirm Administered Dose 2 gm .ROUTE .STK-MED ONE Stop: 09/21/19 07:36 Citric Acid/Sodium Citrate (Bicitra Solution) 30 ml PO ONETIME ONE Stop: 09/21/19 05:29 Last Admin: 09/21/19 07:51 Dose: 30 ml Citric Acid/Sodium Citrate (Bicitra Solution) Confirm Administered Dose 30 ml .ROUTE .STK-MED ONE Stop: 09/21/19 07:50 Cefazolin Sodium/Dextrose 2 gm (/ Premix) 50 mls @ 100 mls/hr IV ONETIME ONE Stop: 09/21/19 05:57 Lactated Ringer's (Ringers, Lactated) 1,000 mls @ 500 mls/hr IV [facility] Last Admin: 09/21/19 07:51 Dose: 500 mls/hr Oxytocin/Sodium Chloride (Oxytocin 30 Unit/500 Ml-Ns) 30 unit in 500 mls @ 250 mls/hr IV TITRATE [facility]AN[facility] Sterile Water (Sterile Water For Injection) Confirm Administered Dose 20 mls @ as directed .ROUTE .STK-MED ONE Stop: 09/21/19 07:36 Ketorolac Tromethamine (Toradol) Confirm Administered Dose 30 mg .ROUTE .STK- MED ONE Stop: 09/21/19 11:09 Midazolam HCl (Versed 1 Mg/Ml) Confirm Administered Dose 2 mg .ROUTE .STK-MED ONE Stop: 09/21/19 08:32 Morphine Sulfate (Duramorph Pf) Confirm Administered Dose 10 mg .ROUTE .STK-MED ONE Stop: 09/21/19 07:26 Octyl Cyanoacrylate (Dermabond Advance) Confirm Administered Dose 1 applic .ROUTE .STK-MED ONE Stop: 09/21/19 07:57 Octyl Cyanoacrylate (Dermabond Advance) Confirm Administered Dose 1 applic .ROUTE .ST-MED ONE Stop: 09/21/19 09:05 Ondansetron HCl (Zofran) Confirm Administered Dose 4 mg .ROUTE .STK-MED ONE Stop: 09/21/19 07:32 Oxytocin (Pitocin) Confirm Administered Dose 30 unit .ROUTE .STK-MED ONE Stop: 09/21/19 08:29 Phenylephrine HCl (Phenylephrine In Ns 100 Mcg/Ml) Confirm Administered Dose 1 mg .ROUTE .STK-MED ONE Stop: 09/21/19 08:19 Sodium Chloride (Saline Flush) 10 ml FLUSH ASDIRECTED PRN PRN Reason: Keep Vein Open Sodium Chloride (Saline Flush) 2.5 ml FLUSH ASDIRECTED PRN PRN Reason: Keep Vein Open Sodium Chloride (Normal Saline) 10 ml IV ASDIRECTED PRN PRN Reason: IV Use - Interaction Disposition, : in Room with Family Interaction: Holding Infant Feeding: Attempted ; Nursed Fair/Poor (baby fussy while nursing) Support Person: - Recovery Exam Fundal Tone: Firm Fundal Level: At Umbilicus Fundal Placement: Midline Lochia Amount: Scant Lochia Color: Rubra/Red Perineum Description: Intact, Minimal Bruising/Swelling Episiotomy/Laceration: None Bladder Status: Indwelling Catheter in Place Urinary Elimination: Indwelling Catheter - Exam General: Alert, Oriented Neck: Supple Lungs: Clear to Auscultation, Normal Respiratory Effort Cardiovascular: Regular Rate, Regular Rhythm GI/Abdominal Exam: Normal Bowel Sounds, Soft, Non-Tender, No Mass Extremities: Normal Range of Motion, Non-Tender. No: Normal Inspection (IV infiltrated in right forearm, patient denies pain or discomfort, no warmth or erythema), Pedal Edema Skin: Warm, Dry, Intact Wound/Incisions: Dressing Dry and Intact Neurological: No New Focal Deficit Psy/Mental Status: Alert, Normal Affect, Normal Mood - Problem List Review Problem List Initiated/Reviewed/Updated: Yes - My Orders Last 24 Hours: My Active Orders 09/21/19 08:50 Acetaminophen/oxyCODONE [Percocet 325-5 MG] 1 tab PO Q4H PRN Acetaminophen/oxyCODONE [Percocet 325-5 MG] 2 tab PO Q4H PRN Bisacodyl [Dulcolax] 10 mg RECTAL ONETIME PRN Ibuprofen [Motrin] 800 mg PO Q8H PRN Lanolin [Lansinoh HPA] See Dose Instructions TOP ASDIRECTED PRN Ondansetron [Zofran] 4 mg IVPUSH Q4H PRN diphenhydrAMINE [Benadryl] 25 mg IVPUSH Q6H PRN Abdominal Binder [OM.PC] Urgent Resuscitation Status Routine 09/21/19 08:51 Patient Status [ADT] Routine Ambulate [RC] PER UNIT ROUTINE Antiembolic Devices [RC] PER UNIT ROUTINE Communication Order [RC] PER UNIT ROUTINE Communication Order [RC] PER UNIT ROUTINE Communication Order [RC] Per Unit Routine May Shower [RC] ASDIRECTED Notify Provider Vital Signs [RC] ASDIRECTED RT Incentive Spirometry [RC] Q2HWA Vital Signs [RC] PER UNIT ROUTINE Assess Lochia [WOMSER] Per Unit Routine Assess Uterine Involution [WOMSER] Per Unit Routine Breast Pump [WOMSER] Per Unit Routine Peripheral IV Discontinue [OM.PC] Routine Sequential Compression Device [OM.PC] Per Unit Routine 09/21/19 08:52 Notify Provider Intake and Out [RC] ASDIRECTED 09/21/19 09:00 Docusate Sodium [Colace] 100 mg PO BID Ketorolac [Toradol] 30 mg IVPUSH Q6H Lactated Ringers [Ringers, Lactated] 1,000 ml IV ASDIRECTED 09/21/19 Lunch Regular Diet [DIET] - Assessment Assessment:: POD#1 after repeat , vitals stable, labs are appropriate, working on . Pain well controlled. - Plan Plan:: Encourage ambulation, remove dressing, may shower today, anticipate home tomorrow. Continue /postop care at this time. Restart Lanzoprazole and lexapro.
[2019-09-22] MEDS: Escitalopram 10 MG Tab PO SCH (10:43)
[2019-09-22] MEDS: Omeprazole 20 MG Cap.CR PO SCH (10:43)
[2019-09-22] MEDS: Docusate Sodium 100 MG Cap PO SCH ×2 (10:44→20:36)
[2019-09-22] MEDS: Ibuprofen 800 MG Tab PO PRN (17:58)
[2019-09-23] MEDS: Acetaminophen/oxyCODONE 325-5 MG Tab PO PRN ×2 (00:39→11:03)
[2019-09-23] MEDS: Ibuprofen 800 MG Tab PO PRN (04:59)
--- NOTE | 2019-09-23 08:20 | PCM.PNPP ---
- General Info Date of Service: 09/23/19 Subjective Update: No complaints, ambulating, well. Functional Status: Reports: Pain Controlled, Tolerating Diet, Ambulating - Review of Systems General: Reports: No Symptoms HEENT: Reports: No Symptoms Pulmonary: Reports: No Symptoms Cardiovascular: Reports: No Symptoms Gastrointestinal: Reports: No Symptoms Genitourinary: Reports: No Symptoms Musculoskeletal: Reports: No Symptoms Skin: Reports: No Symptoms Neurological: Reports: No Symptoms Psychiatric: Reports: No Symptoms - Patient Data Vital Signs - Most Recent: Last Vital Signs Temp 36.9 C 09/23/19 05:00 Pulse 65 09/23/19 05:00 Resp 16 09/23/19 05:00 BP 107/68 09/23/19 05:00 Pulse Ox 98 09/23/19 05:00 Weight - Most Recent: 89.358 kg Lab Results - Last 24 Hours: Laboratory Results - last 24 hr 09/21/19 Range/Units 05:40 RPR 1:1 H (NonRea<1:1) Med Orders - Current: Current Medications Bisacodyl (Dulcolax) 10 mg RECTAL ONETIME PRN PRN Reason: Constipation Diphenhydramine HCl (Benadryl) 25 mg IVPUSH Q6H PRN PRN Reason: Itching or Nausea Docusate Sodium (Colace) 100 mg PO BID [facility] [place] Last Admin: 09/22/19 20:36 Dose: 100 mg Emollient Ointment (Lansinoh Hpa) 0 gm TOP ASDIRECTED PRN PRN Reason: Sore Nipples Escitalopram Oxalate (Lexapro) 10 mg PO DAILY [facility] [place] Last Admin: 09/22/19 10:43 Dose: 10 mg Lactated Ringer's (Ringers, Lactated) 1,000 mls @ 125 mls/hr IV ASDIRECTED [facility] [place] Last Admin: 09/21/19 10:50 Dose: 125 mls/hr Ibuprofen (Motrin) 800 mg PO Q8H PRN PRN Reason: mild pain or fever Last Admin: 09/23/19 04:59 Dose: 800 mg Omeprazole (Omeprazole) 20 mg PO DAILY [facility] [place] Last Admin: 09/22/19 10:43 Dose: 20 mg Ondansetron HCl (Zofran) 4 mg IVPUSH Q4H PRN PRN Reason: Nausea/Vomiting Oxycodone/Acetaminophen (Percocet 325-5 Mg) 1 tab PO Q4H PRN PRN Reason: Pain (moderate 4-6) Last Admin: 09/23/19 00:39 Dose: 1 tab Oxycodone/Acetaminophen (Percocet 325-5 Mg) 2 tab PO Q4H PRN PRN Reason: Pain (moderate 4-6) Discontinued Medications Cefazolin Sodium (Ancef) Confirm Administered Dose 2 gm .ROUTE .STK-MED ONE Stop: 09/21/19 07:36 Citric Acid/Sodium Citrate (Bicitra Solution) 30 ml PO ONETIME ONE Stop: 09/21/19 05:29 Last Admin: 09/21/19 07:51 Dose: 30 ml Citric Acid/Sodium Citrate (Bicitra Solution) Confirm Administered Dose 30 ml .ROUTE .STK-MED ONE Stop: 09/21/19 07:50 Diphenhydramine HCl (Benadryl) 25 mg IVPUSH Q4H PRN PRN Reason: Itching Stop: 09/22/19 09:17 Cefazolin Sodium/Dextrose 2 gm (/ Premix) 50 mls @ 100 mls/hr IV ONETIME ONE Stop: 09/21/19 05:57 Lactated Ringer's (Ringers, Lactated) 1,000 mls @ 500 mls/hr IV BOLUS [facility] [place] Last Admin: 09/21/19 07:51 Dose: 500 mls/hr Oxytocin/Sodium Chloride (Oxytocin 30 Unit/500 Ml-Ns) 30 unit in 500 mls @ 250 mls/hr IV TITRATE [facility] [place] Sterile Water (Sterile Water For Injection) Confirm Administered Dose 20 mls @ as directed .ROUTE .STK-MED ONE Stop: 09/21/19 07:36 Ketorolac Tromethamine (Toradol) 30 mg IVPUSH Q6H [facility] [place] Stop: 09/22/19 09:01 Last Admin: 09/22/19 10:43 Dose: 30 mg Ketorolac Tromethamine (Toradol) Confirm Administered Dose 30 mg .ROUTE .STK- MED ONE Stop: 09/21/19 11:09 Midazolam HCl (Versed 1 Mg/Ml) Confirm Administered Dose 2 mg .ROUTE .STK-MED ONE Stop: 09/21/19 08:32 Morphine Sulfate (Duramorph Pf) Confirm Administered Dose 10 mg .ROUTE .STK-MED ONE Stop: 09/21/19 07:26 Nalbuphine HCl (Nubain) 5 mg IVPUSH Q3H PRN PRN Reason: Pruritis Stop: 09/22/19 09:17 Last Admin: 09/21/19 10:49 Dose: 5 mg Naloxone HCl (Narcan) 0.1 mg IVPUSH ONETIME PRN PRN Reason: Respiratory Depression Stop: 09/22/19 09:17 Octyl Cyanoacrylate (Dermabond Advance) Confirm Administered Dose 1 applic .ROUTE .STK-MED ONE Stop: 09/21/19 07:57 Octyl Cyanoacrylate (Dermabond Advance) Confirm Administered Dose 1 applic .ROUTE .STK-MED ONE Stop: 09/21/19 09:05 Last Admin: 09/22/19 12:28 Dose: Not Given Ondansetron HCl (Zofran) Confirm Administered Dose 4 mg .ROUTE .STK-MED ONE Stop: 09/21/19 07:32 Oxytocin (Pitocin) Confirm Administered Dose 30 unit .ROUTE .STK-MED ONE Stop: 09/21/19 08:29 Phenylephrine HCl (Phenylephrine In Ns 100 Mcg/Ml) Confirm Administered Dose 1 mg .ROUTE .STK-MED ONE Stop: 09/21/19 08:19 Sodium Chloride (Saline Flush) 10 ml FLUSH ASDIRECTED PRN PRN Reason: Keep Vein Open Sodium Chloride (Saline Flush) 2.5 ml FLUSH ASDIRECTED PRN PRN Reason: Keep Vein Open Sodium Chloride (Normal Saline) 10 ml IV ASDIRECTED PRN PRN Reason: IV Use - Interaction Infant Disposition, : [place] in Room with Family Infant Interaction: Holding Infant Infant Feeding: Attempted ; Nursed Fair/Poor (baby fussy while nursing) Support Person: - Recovery Exam Fundal Tone: Firm Fundal Level: 2 Fingerbreadths Below Umbilicus Fundal Placement: Midline Lochia Amount: Scant Lochia Color: Rubra/Red Perineum Description: Intact, Minimal Bruising/Swelling Episiotomy/Laceration: None Bladder Status: Voiding Urinary Elimination: Voided - Exam General: Alert, Oriented Neck: Supple Lungs: Normal Respiratory Effort GI/Abdominal Exam: Soft, No Organomegaly, No Distention, No Mass Extremities: Normal Inspection, Non-Tender, No Pedal Edema Skin: Warm, Dry, Intact Wound/Incisions: Healing Well Neurological: No New Focal Deficit Psy/Mental Status: Alert, Normal Affect, Normal Mood - Problem List Review Problem List Initiated/Reviewed/Updated: Yes - My Orders Last 24 Hours: My Active Orders 09/22/19 09:00 Escitalopram [Lexapro] 10 mg PO DAILY Omeprazole 20 mg PO DAILY - Assessment Assessment:: POD#2 after repeat , vitals stable, labs are appropriate. Pain well controlled. discussed RPR and need for follow up testing anticipate contact from [place] [facility] dept. Denies any high risk activity. - Plan Plan:: Dismiss to home. Follow up in 2 weeks. Discharge precautions reviewed. .
[2019-09-23] MEDS: Omeprazole 20 MG Cap.CR PO SCH (10:02)
[2019-09-23] MEDS: Docusate Sodium 100 MG Cap PO SCH (10:04)
[2019-09-23] MEDS: Escitalopram 10 MG Tab PO SCH (10:04)
== END 2019-09-23 15:30 | disposition home or self-care (01) | DRG 540 ==
LOC: MW.OB 09-21 05:17
PROVIDERS: ADMIT Obstetrics & Gynecology; ATTEND Obstetrics & Gynecology
PROC: 10D00Z1 Extraction of Products of Conception, Low, Open Approach (ICD-10-PCS; principal; 2019-09-21)
DX: O34.211 Maternal care for low transverse scar from previous cesarean delivery (principal); Z3A.39 39 weeks gestation of pregnancy; Z37.0 Single live birth
CPT/HCPCS: 01961; 36415; 59025; 82803; 85014; 85018; 85027; 86593; 86780; 86850; 86900; 86901; A9270-GY; J0690; J1885; J2250; J2270; J2300; J2370; J2405; J2590; J7120

== ENCOUNTER 2022-04-19 16:44 | Emergency (ER) | payer BC ==
[2022-04-19] MEDS ORDERED: Dexamethasone 10 MG/ML SDV IM STA (17:05)
[2022-04-19] MEDS ORDERED: Penicillin G Benzathine 1,200,000 Units/2 ML Syringe IM ONE (17:05)
== END 2022-04-19 17:59 | disposition home or self-care (01) ==
LOC: MW.ED 16:44
DX: J02.0 Streptococcal pharyngitis (principal); E66.9 Obesity, unspecified; Z68.28 Body mass index [BMI] 28.0-28.9, adult
CPT/HCPCS: 96372; 99282; J0561; J1100; 99283